=== PATIENT | female | born 1995 | race Two or more races ===

== ENCOUNTER 2023-12-10 21:23 | Emergency (ER) | payer OTHER, MEDICAID ==
[~2023-12-10] VITALS: Ht 160 cm; Wt 91.6 kg
[2023-12-10 22:10] LABS: Rapid Influenza A Negative (Negative); Rapid Influenza B Negative (Negative)
[2023-12-10 22:12] LABS: COVID19 ANTIGEN SOFIA FIA POSITIVE (NEGATIVE)
[2023-12-10 22:33] VITALS: PULSE 96; RESP 16; O2SAT 97
[2023-12-10 23:47] VITALS: BP 115/77; PULSE 101; RESP 16; TEMP 98.5; O2SAT 98
== END 2023-12-11 00:06 | disposition home or self-care (01) ==
LOC: ER 21:23
DX: U07.1 COVID-19 (principal)
CPT/HCPCS: 36415; 87426; 87804